=== PATIENT | male | born 1950 | race Two or more races ===

== ENCOUNTER 2019-01-24 21:56 | Emergency (ER) | payer OTHER ==
[~2019-01-24] VITALS: Ht 167.6 cm; Wt 72.6 kg
--- NOTE | 2019-01-24 22:05 | NUR ---
PT [id number] COMPLAINING OF GLF FOLLOWING HYPOGLYCEMIC EPISODE, PER EMS PT WAS GIVEN D10 IN THE FIELD FOR HYPOGLYCEMIA, AND THEN PT HAS SYNCOPAL EPISODE AND HIT HEAD ON THE GROUND. HEMATOMA NOTED ON FOREHEAD. PT AXO4. RESPIRATIONS EVEN AND UNLABORED. PT PUT ON THE PILOT PLANT OPERATOR AND PULSE OX. PENDING EVAL FROM ER .
--- NOTE | 2019-01-24 22:44 | NUR ---
BARBARA YAO AT BEDSIDE.
--- NOTE | 2019-01-24 22:56 | NUR ---
PT TAKEN TO CT VIA RLAUREN.
[2019-01-24] MEDS ORDERED: IV NS 0.9% 1,000 ML BAG IV ONE ×2 (23:00→23:30)
[2019-01-24 23:01] LABS: BASOPHILS # (AUTO) 0.1 /CMM (0.0-0.2); BASOPHILS % (AUTO) 1.3 % (0.0-2.0); EOSINOPHILS % (AUTO) 0.4 % (0.0-6.0); HEMATOCRIT 30 % (39-51); HEMOGLOBIN 10.2 g/dL (13.5-17.5); LYMPHOCYTES # (AUTO) 0.7 /CMM (0.8-4.8); MEAN CORPUSCULAR HGB CONC 33 g/dl (31.0-36.0); MEAN CORPUSCULAR VOLUME 91 fL (80-96); MONOCYTES # (AUTO) 0.8 /CMM (0.1-1.30); MONOCYTES % (AUTO) 12.4 % (2.0-12.0); NEUTROPHILS # (AUTO) 5.2 /CMM (1.8-8.9); NEUTROPHILS % (AUTO) 75.9 % (43.0-81.0); PLATELET COUNT (AUTO) 64 /CMM (150-450); RED BLOOD CELL COUNT(AUTO) 3.33 MIL/uL (4.5-6.0); WHITE BLOOD COUNT (AUTO) 6.8 K/uL (4.3-11.0)
--- NOTE | 2019-01-24 23:09 | NUR ---
PT RETURNED FROM CT.
--- NOTE | 2019-01-24 23:12 | NUR ---
EKG AT BEDSIDE.
--- NOTE | 2019-01-24 23:20 | NUR ---
PT AMBULATED TO BATHROOM W/ STEADY GAIT. NOT ABLE TO GIVE URINE SAMPLE. ER AWARE.
[2019-01-24 23:22] LABS: ALBUMIN 3.6 g/dL (3.4-5.0); BILIRUBIN,DIRECT 1.9 mg/dL (0.0-0.2); BILIRUBIN,TOTAL 3.8 mg/dL (0.2-1.0); CALCIUM, SERUM 8.3 mg/dL (8.5-10.1); CREATININE 1.5 mg/dL (0.6-1.3); TOTAL PROTEIN, SERUM 7.7 g/dL (6.4-8.2)
[2019-01-24 23:24] LABS: POTASSIUM 2.2 mmol/L (3.5-5.1)
[2019-01-24] MEDS ORDERED: POTASSIUM CL. PREMIX PERIPHER. 50 ML ONE (23:35)
[2019-01-24] MEDS: POTASSIUM CL. PREMIX PERIPHER. 50 ML IV SCH (23:40)
[2019-01-25 00:07] LABS: CHOLESTEROL 186 mg/dL (<200); HDL CHOLESTEROL 62 mg/dL (40-60); LDL 101 mg/dL (0-99); TRIGLYCERIDES 140 mg/dL (30-150)
[2019-01-25] MEDS ORDERED: LORAZEPAM INJ 2 MG/ML VIAL ONE (00:16)
[2019-01-25] MEDS ORDERED: LORAZEPAM INJ 2 MG/ML VIAL IV ONE (00:30)
--- NOTE | 2019-01-25 00:30 | NUR ---
[facility] CALLED. WILL BE CALLING BACK.
--- NOTE | 2019-01-25 00:31 | NUR ---
US AT BEDSIDE.
[2019-01-25 00:33] LABS: LYMPHOCYTES % (MANUAL) 11 % (16-48); MONOCYTES % (MANUAL) 10 % (0-11.0); NEUTROPHILS % (MANUAL) 79 (42-76)
[2019-01-25] MEDS ORDERED: POTASSIUM CL. PREMIX PERIPHER. 0 ML ONE (00:33)
[2019-01-25] MEDS: POTASSIUM CL. PREMIX PERIPHER. 50 ML IV SCH ×3 (00:40→02:30)
[2019-01-25 01:18] LABS: APPEARANCE,URINE Clear (CLEAR); BILIRUBIN,URINE Negative (NEGATIVE); BLOOD, URINE Moderate Ery/uL (NEGATIVE); COLOR,URINE Yellow (YELLOW); KETONES,URINE Negative (NEGATIVE); LEUKOCYTE ESTERASE ,URINE Negative (NEGATIVE); NITRITE, URINE Negative (NEGATIVE); PROTEIN,URINE 30 mg/dl (NEGATIVE); UGLUCOSE Negative (NEGATIVE)
[2019-01-25] MEDS ORDERED: Magnesium 1 GM/2 ML VIAL IV ONE (01:30)
[2019-01-25] MEDS ORDERED: Magnesium 1GM/D5W 100ML PREMIX 200 ML IV ONE (01:48)
--- NOTE | 2019-01-25 02:11 | NUR ---
ACCEPTED TO [facility] # FOR ER REPORT [phone]. ACCEPTING MD DR. BALDERAS. PICKUP AT 3AM.
[2019-01-25 02:18] LABS: BACTERIA,URINE None seen /HPF (None Seen); SQUAMOUS EPITHELIAL CELL,UR Few /HPF (None Seen); WBC,URINE 0-2 /HPF (0-3)
--- NOTE | 2019-01-25 02:34 | NUR ---
REPORT GIVEN TO GLENN SILVESTRE FOR TANIYA.
--- NOTE | 2019-01-25 03:00 | NUR ---
PER DR. SANCHES REQUEST, RUN MUCH POTASSIUM INTO THE PT UNTIL TRANPORT ARRIVES AND STOP THE REMAINING DOSE. PT DID NOT RECIEVE LAST 10 mEq OF POTASSIUM PER DR. MCCABE.
--- NOTE | 2019-01-25 03:13 | NUR ---
REPORT GIVEN TO LOR FOR [facility] TRANSPORT.
[2019-01-25 03:15] VITALS: BP 125/81
== END 2019-01-25 03:20 | disposition short-term general hospital (02) ==
LOC: ER 21:59
DX: S00.03XA Contusion of scalp, initial encounter (principal); S00.83XA Contusion of other part of head, initial encounter; E11.649 Type 2 diabetes mellitus with hypoglycemia without coma; E87.6 Hypokalemia; K85.20 Alcohol induced acute pancreatitis without necrosis or infection; F10.129 Alcohol abuse with intoxication, unspecified; R51 Headache; I10 Essential (primary) hypertension; Y90.9 Presence of alcohol in blood, level not specified; W18.09XA Striking against other object with subsequent fall, initial encounter; Y93.89 Activity, other specified; Y92.89 Other specified places as the place of occurrence of the external cause; Y99.8 Other external cause status
CPT/HCPCS: 36415; 70450; 71045; 74176; 76705; 80048; 80061; 80076; 81001; 82962 ×2; 83690; 83735; 85025; 93005; 96361; 96365; 96375; 99285; J2060; J3475; J3480; J7030 ×2; J7040; 81000-TC

== ENCOUNTER 2019-07-11 06:21 | Inpatient (IN) | payer OTHER ==
[2019-07-11] VITALS (36 sets, daily range): BP systolic 102–141; BP diastolic 57–98
[~2019-07-11] VITALS: Ht 167.6 cm; Wt 113.4 kg
--- NOTE | 2019-07-11 06:25 | NUR ---
TO BED 10 BIB EMS C/O ABDOMINAL PAIN WITH NAUSEA AND DIARRHES X3 DAYS, NOTED BLACK TARRY STOOL ON LOWER EXTREMITY. L KNEE PAIN S/P GLF. PT CHRIS KO. PT AAOX4 NO ACUTE DISTRESS NOTED, RESP EVEN AND UNLABORED. PLACE PT ON CARDIAC MONITORING, CONTINUOUS POX. ER MD AT BEDSIDE TO EVAL PT WITH ORDERS RECEIVED. WILL CARRY OUT ORDERS.
[2019-07-11] MEDS ORDERED: IV NS 0.9% 1,000 ML BAG IV ONE ×2 (06:30→08:30)
[2019-07-11] MEDS ORDERED: ONDANSETRON HCL/PF 4 MG/2 ML VIAL IVP ONE (06:30)
[2019-07-11] MEDS ORDERED: ONDANSETRON HCL/PF 4 MG/2 ML VIAL ONE (06:43)
--- NOTE | 2019-07-11 06:45 | NUR ---
IV INITIATED R AC 18G. LABS DRAWN FROM SITE AND SENT TO LAB. IV INTACT AND PATENT, PLACED ON SALINE LOCK
--- NOTE | 2019-07-11 07:02 | NUR ---
PT UNABLE TO PROVIDE URINE SAMPLE AT THIS TIME. ER AWARE
[2019-07-11 07:13] LABS: BASOPHILS # (AUTO) 0.1 /CMM (0.0-0.2); BASOPHILS % (AUTO) 0.4 % (0.0-2.0); EOSINOPHILS % (AUTO) 0.1 % (0.0-6.0); LYMPHOCYTES # (AUTO) 1.1 /CMM (0.8-4.8); LYMPHOCYTES % (AUTO) 8.4 % (20.0-44.0); MEAN CORPUSCULAR HGB CONC 29 g/dl (31.0-36.0); MEAN CORPUSCULAR VOLUME 83 fL (80-96); MONOCYTES # (AUTO) 1.3 /CMM (0.1-1.30); MONOCYTES % (AUTO) 10.1 % (2.0-12.0); NEUTROPHILS # (AUTO) 10.4 /CMM (1.8-8.9); PLATELET COUNT (AUTO) 379 /CMM (150-450); WHITE BLOOD COUNT (AUTO) 12.8 K/uL (4.3-11.0)
[2019-07-11 07:21] LABS: CALCIUM, SERUM 8.6 mg/dL (8.5-10.1); CARBON DIOXIDE 15 mmol/L (21-32); CHLORIDE 104 mmol/L (98-107); CREATININE 1.9 mg/dL (0.6-1.3); GLUCOSE 134 mg/dL (74-106); POTASSIUM 3.9 mmol/L (3.5-5.1); SODIUM SERUM 141 mmol/L (136-145); UREA NITROGEN, BLOOD 49 mg/dL (7-18)
[2019-07-11 07:22] LABS: HEMATOCRIT 16 % (39-51); HEMOGLOBIN 4.6 g/dL (13.5-17.5)
[2019-07-11 07:31] LABS: ALBUMIN 2.1 g/dL (3.4-5.0); ALKALINE PHOSPHATASE 130 U/L (46-116); ASPARTATE AMINOTRANSFERASE 31 U/L (15-37); BILIRUBIN,TOTAL 1.3 mg/dL (0.2-1.0); TOTAL PROTEIN, SERUM 6.2 g/dL (6.4-8.2)
--- NOTE | 2019-07-11 07:39 | NUR ---
ASSUMED CARE REPORT GIVEN BY TAYLOR SILVESTRE ,PATIENT AWAKE ALERT DENIES PAIN CALLED CT
[2019-07-11 08:11] LABS: ALANINE AMINOTRANSFERASE 16 U/L (12-78)
--- NOTE | 2019-07-11 08:20 | NUR ---
[facility], WAITING FOR MD CALL BACK.
--- NOTE | 2019-07-11 08:24 | NUR ---
RECIEVED CALL BACK FROM BILL YAO, DR. MOELLER.
[2019-07-11] MEDS ORDERED: VANCOMYCIN HCL 1.25 GM in IV D5W 260 ML IV ONE (08:30)
[2019-07-11] MEDS ORDERED: PIPERACILLIN /TAZOBACTAM 3.375 G in IV D5W 50 ML IV ONE (08:30)
--- NOTE | 2019-07-11 08:32 | NUR ---
CALLED SISTER SUPERIOR FOR ICU BED. WAITING FOR CALL BACK.
--- NOTE | 2019-07-11 08:53 | NUR ---
PATIENT AWAKE ALERT DENIES PAIN NOTED ABDOMEN DISTENDED REPOSITION PATIENT X1 SMALL BM DARK STOOL MD AWARE LAB RESULTS AWARE LOW H AND H ORDERED FOR BLOOD TRANSFUSION 3 UNITS CALLED BLOOD BANK STATED NOT READY .LYN GAS AND OIL SERVICER @ BEDSIDE FOR SECOND TYPE PER PROTOCOL ,PATIENT HAS 2 HEPLOCK OBTAINED NO EDEMA ,NO PAIN
--- NOTE | 2019-07-11 08:53 | NUR ---
RECIEVED CALL BACK FROM DR. IVONE MONTENEGRO MD TO
--- NOTE | 2019-07-11 08:55 | NUR ---
DONATO CHANG CALLED FOR CONSULT,SPOKE WITH DR SAM
[2019-07-11] MEDS ORDERED: VANCOMYCIN 1 GM in IV D5W 250ml IV ONE (09:00)
[2019-07-11 09:06] LABS: BAND % (MANUAL) 2 % (0.0-5.0); LYMPHOCYTES % (MANUAL) 5 % (16-48); MONOCYTES % (MANUAL) 8 % (0-11.0); NEUTROPHILS % (MANUAL) 85 (42-76)
[2019-07-11] MEDS ORDERED: GLIP10TA11 PO (09:16)
[2019-07-11] MEDS ORDERED: METO25TA20 PO (09:16)
[2019-07-11] MEDS ORDERED: FURO40TA5 PO (09:16)
[2019-07-11] MEDS ORDERED: POTA8TAB3 PO (09:16)
[2019-07-11] MEDS ORDERED: METF1000 PO (09:16)
[2019-07-11] MEDS ORDERED: ATOR40TA PO (09:16)
--- NOTE | 2019-07-11 09:30 | NUR ---
PATIENT AWAKE ALERT AGREES FOR PACK RED BLOOD CELL TRASFUSION SIGNED CONSENT PREPAROLE COUNSELING AIDE @ BEDSIDE ANTONIO Fields CNA
--- NOTE | 2019-07-11 09:45 | NUR ---
STARTED BLOOD TRANSFUSION WITNESS BY GENER \VITALS TAKEN AND FILED
--- NOTE | 2019-07-11 10:03 | NUR ---
ASSIGNED TO ICU 260
--- NOTE | 2019-07-11 10:05 | NUR ---
CALLED LAB SPOKE TO ANTONELLA REGARDING #2 LACTATE DRAW .
--- NOTE | 2019-07-11 10:20 | NUR ---
PATIENT TRASFER TO ICU NOTED BLOOD TRANSFUSION INFUSING WELL TO HIS LAC NO BLOOD REACTION AFTRE THE 15 MINUTES STARTED VITALS TAKEN AND FILED REPORT GIVEN TO Casper SILVESTRE
[2019-07-11] MEDS ORDERED: ZOLPIDEM TARTRATE 5 MG TABLET PO PRN (11:00)
[2019-07-11] MEDS ORDERED: HYDROCODONE/APAP 5/325MG 1 EACH TABLET PO PRN (11:00)
[2019-07-11] MEDS ORDERED: ONDANSETRON HCL/PF 4 MG/2 ML VIAL IVP PRN (11:00)
[2019-07-11] MEDS ORDERED: Z GUARD REMEDY 2 OZ OINT TP PRN (11:00)
[2019-07-11] MEDS ORDERED: ACETAMINOPHEN 325 MG TABLET PO PRN (11:00)
--- NOTE | 2019-07-11 11:00 | NUR ---
RN INITIAL NOTES RECEIVED PT FROM ER VIA [facility] WITH C/O ABDOMINAL PAIN AND BLACK TARRY STOOL. PT A/OX3. ON 02 VIA MI AT 2LPM. PT PLACED COMFORTABLY TO BED. CONNECTED TO MONITOR. IV LINES IN PLACE. 1 UNIT OF PRBC TRANSFUSING. NO REACTION NOTED. PT SINUS TACH IN THE MONITOR. BODY ASSESSMENT DONE, ABDOMEN DISTENDED. PICTURES TAKEN AND PLACED IN THE CHART. DR WISEMAN NOTIFIED OF ADMISSION. AWAITING FOR ADMISSION ORDERS. PT FOR PICC LINE INSERTION. WILL CONTINUE TO MONITOR
--- NOTE | 2019-07-11 14:00 | NUR ---
RN NOTE: BEDSIDE REPORT WAS RECEIVED FROM NIRMALA MAIN FOR CONTINUITY OF CARE. PATIENT WAS RECEIVING BLOOD TRANSFUSION PER MD ORDER AND NO BLOOD TRANSFUSION REACTION WAS NOTED.
--- NOTE | 2019-07-11 14:12 | NUR ---
RN NOTE: CALLED AND SPOKE WITH TOMASA TO PAGE DR. WISEMAN VIA [employer] EXCHANGE REGARDING THE PATIENT'S REQUEST FOR A COUGH SYRUP. AWAITING FOR MD'S RESPONSE.
--- NOTE | 2019-07-11 14:15 | NUR ---
RN NOTE: RECEIVED A TELEPHONE ORDER FROM DR. WISEMAN FOR A ROBITUSSIN 5ML PO Q6HR PRN. ORDER NOTED AND CARRIED OUT. PATIENT MADE AWARE.
[2019-07-11] MEDS ORDERED: GUAIFENESIN/D-METHORPHAN HB 5 ML UDC PO PRN (14:30)
[2019-07-11] MEDS: IV NS 0.9% 1,000 ML IV PRN (15:02)
[2019-07-11] MEDS ORDERED: METFORMIN 500 MG TABLET PO SCH (17:00)
[2019-07-11] MEDS: glipiZIDE 10 MG TABLET PO SCH (17:00)
[2019-07-11] MEDS: POTASSIUM CHLORIDE 10 MEQ TABLET.SA PO SCH (17:00)
[2019-07-11] MEDS: METOPROLOL TARTRATE 25 MG TABLET PO SCH (17:00)
--- NOTE | 2019-07-11 17:25 | NUR ---
RN NOTE: CALLED AND SPOKE WITH DR. WISEMAN ABOUT THE PATIENT'S EPISODE OF DESATURATION AND WAS VERBALIZING THAT HE CAN NOT BREATH. PATIENT WAS NOTED HYPERVENTILATING AND SPO2 WAS DROPPED TO 85% WITH O2 2L/MIN VIA NC. MD WITH ORDERS FOR BIPAP, LASIX 20MG IVP X1 AND H/H STAT. WILL HOLD FOR THE 3RD UNIT OF PRBC UNTIL RESULTS FOR H/H WAS RESULTED. PATIENT MADE AWARE.
[2019-07-11] MEDS: PANTOPRAZOLE 40 MG VIAL IV SCH (17:26)
[2019-07-11] MEDS ORDERED: FUROSEMIDE 20 MG/2 ML VIAL IV ONE ×2 (17:30→22:00)
[2019-07-11 17:45] LABS: HEMOGLOBIN 6.3 g/dL (13.5-17.5)
--- NOTE | 2019-07-11 17:45 | NUR ---
RN NOTE: RECEIVED A CRITICAL H/H VALUE 6.3. PAGED DR. WISEMAN VIA [employer] EXCHANGE AND SPOKE WITH TOMASA. AWAITING FOR 'S RESPONSE.
--- NOTE | 2019-07-11 17:55 | NUR ---
RT PATIENT WAS PLACED ON BIPAP FOR SOB WITH NOTED DISTRESS AND DESATURATION. ALARMS CHECKED + AUDIBLE. Addendum: 07/11/19 at 1756 by SY FERGUSON RT Amended: Links added.
--- NOTE | 2019-07-11 18:11 | NUR ---
RN NOTE: DR. WISEMAN CALLED BACK AND GAVE AN ORDER TO GIVE THE 3RD BAG OF PRBC AND GIVE LASIX AFTER THE LAST INFUSION. AND 1 HOUR POST TRANSFUSION, MD WANTED TO RECHECK THE H/H AGAIN. WILL ENDORSE THIS MISCELLANEOUS ORDER TO PM SHIFT NURSE.
--- NOTE | 2019-07-11 19:43 | NUR ---
NETWORK LEAD. INITIAL ASSESSMENT. RECEIVED THE PT REST ON THE BED, AWAKE, ALERT, WOLOF SPEAKING. 3RD UNIT PRBC RUNNING. HOB ELEVATED. BIPAP ON SETTINGS 20/5. RATE IS 14, FIO2 80%SAT 98%. NO ACUTE DISTRESS NOTED. GREASE CUP FILLER SHOWING S TACH. IV RT UPPER ARM PICC LINE IVF NS 75 ML/H. AT THIS TIME BLOOD RUNNING. NS 5 ML/H. UNTIL FINISH THE BLOOD TRANSFUSION FINISH..PT IS PALE . GIANFRANCO LOWE EXTREMITY SWOLLEN 4+ WILL CONTINUE TO MONITOR VITALS.
--- NOTE | 2019-07-11 19:45 | NUR ---
RN NOTE: BEDSIDE REPORT WAS GIVEN TO PM SHIFT NURSE FOR CONTINUITY OF CARE. PATIENT REMAINED TO BE ON BIPAP AND WAS SATURATING 100% AND WAS TOLERATING IT. SEVERAL ATTEMPTS TO REMOVE THE BIPAP WAS DONE BY THE PATIENT, BUT A DANISH SPEAKING STAFF WAS ASKED TO TRANSLATE TO THE PATIENT THAT HE NEEDED TO KEEP THE BIPAP ON HIM EVEN THOUGH HE FELT BETTER NOW. PATIENT UNDERSTOOD. WILL CONTINUE TO MONITOR.
--- NOTE | 2019-07-11 21:45 | NUR ---
agricultural purchasing agent. blood finished . during transfusion no complication noted
[2019-07-11] MEDS: ATORVASTATIN 40 MG TABLET PO SCH (21:57)
[2019-07-11 23:09] LABS: HEMOGLOBIN 7.2 g/dL (13.5-17.5)
--- NOTE | 2019-07-11 23:55 | NUR ---
SPECIAL NEEDS TUTOR. PT PULLING OUT OF BIPAP. , . EDUCATE THE PT FOR BIPAP NEEDS, NOT WORK OUT. CALLED PROPULSION SYSTEMS ENGINEER MD . FOR SOFT WRIST RESTRAINT ORDER RECEIVED.
[2019-07-12] VITALS (43 sets, daily range): BP systolic 90–142; BP diastolic 55–90
[2019-07-12] MEDS: IV NS 0.9% 1,000 ML IV PRN ×2 (00:21→14:03)
[2019-07-12 04:34] LABS: CALCIUM, SERUM 7.9 mg/dL (8.5-10.1); MAGNESIUM 1.6 mg/dL (1.8-2.4); PHOSPHORUS 3.2 mg/dL (2.5-4.9); POTASSIUM 3.9 mmol/L (3.5-5.1)
[2019-07-12 05:01] LABS: BASOPHILS % (AUTO) 0.1 % (0.0-2.0); EOSINOPHILS % (AUTO) 0.1 % (0.0-6.0); HEMATOCRIT 22 % (39-51); HEMOGLOBIN 7.1 g/dL (13.5-17.5); LYMPHOCYTES # (AUTO) 1.6 /CMM (0.8-4.8); LYMPHOCYTES % (AUTO) 8.1 % (20.0-44.0); MEAN CORPUSCULAR HGB CONC 32 g/dl (31.0-36.0); MEAN CORPUSCULAR VOLUME 84 fL (80-96); MONOCYTES # (AUTO) 1.7 /CMM (0.1-1.30); MONOCYTES % (AUTO) 8.5 % (2.0-12.0); NEUTROPHILS # (AUTO) 16.1 /CMM (1.8-8.9); NEUTROPHILS % (AUTO) 83.2 % (43.0-81.0); PLATELET COUNT (AUTO) 200 /CMM (150-450); RED BLOOD CELL COUNT(AUTO) 2.66 MIL/uL (4.5-6.0); WHITE BLOOD COUNT (AUTO) 19.4 K/uL (4.3-11.0)
--- NOTE | 2019-07-12 05:09 | NUR ---
INTERIOR BLOCK WIRER. ABDOMEN DISTENDED. BLADDER SCAN DONE. UNABLE TO FIND URINE. WILL CONTINUE TO MONITOR VITALS
[2019-07-12] MEDS ORDERED: MEROPENEM 500 MG VIAL IV ONE (05:36)
[2019-07-12] MEDS: MEROPENEM 500 MG in IV NS 0.9% 50 ML IV SCH ×2 (05:39→17:21)
--- NOTE | 2019-07-12 05:44 | NUR ---
PT RECEIVED ON BIPAP ON NOTED SETTINGS. PT IS AWAKE, KEEPS PULLING MASK OFF. EXPLAINED WHY HE IS ON BIPAP. PT CONTINUES TO PULL MASK OFF THE WHOLE NIGHT RN AWARE. TITRATED FIO2. MEPILEX IN PLACE. BIPAP ALARMS SET AND AUDIBLE. AMBU BAG AT BEDSIDE. CONTINUE PT ON BIPAP. Addendum: 07/12/19 at 0548 by SHANT HONG RT Amended: Links added.
--- NOTE | 2019-07-12 07:45 | NUR ---
ICU/RN INITIAL NOTES,AM RECEIVED BEDSIDE REPORT FROM NIGHT NURSE. PT ON BIPAP WITH SETTINGS ORDERED BY MD, NO DISTRESS, TOLERATING WELL. PT ALERT, FOLLOWS COMMANDS. SINUS ON TELE. PICC LINE AND PIV PATENT AND INTACT, NO S/S OF INFECTION OF INFILTRATION NOTED, IVF INFUSING ORDERED. PT ON DIAPER, UNABLE TO INSERT HERNANDEZ PER NIGHT RN. ALL NEEDS WILL BE ATTENDED TO, SAFETY MEASURES TAKEN, BED IN LOW POSITION, SIDE RAILS UP, CALL LIGHT WITHIN REACH. WILL CONTINUE CARE.
--- NOTE | 2019-07-12 08:00 | NUR ---
ICU/RN: PT TAKEN OFF BIPAP. PLACED ON 5LITERS NASAL CANULA, NO DISTRESS, TOLERATING WELL. WILL CONTINUE TO MONITOR. ABG PENDING. TAKEN OF BILATERAL WRIST RESTRAINTS, WILL CLOSELY MONITOR
--- NOTE | 2019-07-12 08:00 | NUR ---
RT PATIENT REMOVED FROM BIPAP AND PLACED ON 5L N/C ANTONIO WELL. NO SOB NOTED.
[2019-07-12] MEDS ORDERED: FEE PK DOSING 1 MIN EA MC ONE (08:09)
[2019-07-12] MEDS: PANTOPRAZOLE 40 MG VIAL IV SCH ×2 (08:47→17:22)
[2019-07-12] MEDS: FUROSEMIDE 40 MG TABLET PO SCH (08:49)
[2019-07-12] MEDS: POTASSIUM CHLORIDE 10 MEQ TABLET.SA PO SCH ×2 (08:49→17:22)
[2019-07-12] MEDS: glipiZIDE 10 MG TABLET PO SCH ×2 (08:49→17:22)
[2019-07-12] MEDS: METOPROLOL TARTRATE 25 MG TABLET PO SCH ×2 (09:00→17:22)
[2019-07-12 09:18] LABS: ABG BASE EXCESS -3.4 mmol/L; ABG OXYGEN SATURATION 95.6 % (92.0-98.5); ABG PCO2 30.7 mmHg (35.0-45.0); ABG PH 7.438 (7.350-7.450); ABG PO2 87.1 mmHg (75.0-100.0); AaDO2 162.8 mmHg; COHb 0.8 % (0.5-1.5); O2Hb 93.9 % (94.0-97.0); SITE, ABG Right Radial; VENT MODE, BG 5L N/C
[2019-07-12] MEDS ORDERED: Magnesium 1GM/D5W 100ML PREMIX 100 ML IV SCH (09:30)
[2019-07-12] MEDS ORDERED: VANCOMYCIN 1.5 GM in IV D5W 500 ML IV SCH (10:00)
--- NOTE | 2019-07-12 12:25 | NUR ---
WOUND CARE CONSULT: LIMITED ASSESSMENT DUE TO PT EATING LUNCH AT THIS TIME. PT PRESENTS WITH CALLUSES TO RT FOOT AND INTACT DEEP TISSUE INJURY TO RT HEEL, PRESENT ON ADMISSION. RECOMMENDATIONS MADE FOR SKIN PROTECTION. DISCUSSED WITH NURSING STAFF. WILL SEE PRN. YAO IN AGREEMENT WITH PLAN OF CARE. CURRENT GENE SCORE IS 15. Addendum: 07/12/19 at 1227 by LIANA MARTINEZ WNDNU Amended: Links added.
[2019-07-12 12:58] LABS: HEMOGLOBIN 6.4 g/dL (13.5-17.5)
[2019-07-12 15:24] LABS: ABG BASE EXCESS -5.4 mmol/L; ABG OXYGEN SATURATION 94.1 % (92.0-98.5); ABG PCO2 31.7 mmHg (35.0-45.0); ABG PH 7.392 (7.350-7.450); ABG PO2 75.1 mmHg (75.0-100.0); AaDO2 209.7 mmHg; COHb 1.3 % (0.5-1.5); MetHb 0.2 % (0.0-1.5); O2Hb 92.7 % (94.0-97.0); SITE, ABG Left Radial; VENT MODE, BG Nasal Cannula
--- NOTE | 2019-07-12 18:00 | NUR ---
ICU/RN: GI AT BEDSIDE, PT ASSESSED. ORDERS FOR EGD AND US GUIDED PARACENTESIS PLACED. CONSENT IN CHART. CALLED SON AND INFORMED HIM OF PROCEDURES. PT ALERT, AWAKE, ABLE TO CONSENT FOR HIMSELF.
--- NOTE | 2019-07-12 18:10 | NUR ---
ICU/RN: BLOOD TRANSFUSION STARTED, TOLERATING WELL, NO DISTRESS, NO S/S OF ADVERSE REACTIONS NOTED. WILL CONTINUE TO MONITOR.
--- NOTE | 2019-07-12 19:20 | NUR ---
ICU/RN: BEDSIDE REPORT ENDORSED TO NIGHT NURSE. PT ALERT, AWAKE, FOLLOW COMMANDS. ON NASAL CANULA, 5LITERS. SINUS ON TELE. ALL NEEDS ATTENDED TO. BLOOD TRANSFUSION ONGOING, TOLERATING WELL. SAFETY MEASURES TAKEN, BED IN LOW POSITION, SIDE RAILS UP, CALL LIGHT WITHIN REACH.
--- NOTE | 2019-07-12 19:30 | NUR ---
ICU NOTES RECEIVED PT AWAKE,ALERT OX4.1UNIT PRBC INFUSING.O2 AT 5LN/N WITH SATURATION OF 100% C/O SHORTNESS OF BREATH,RT AT BEDSIDE,WILL MONITOR.MONITOR SHOWS NSR RATE OF 85/MIN.INFORMED PT. RE-NPO AFTER M/N.RECEPTIVE AND UNDERSTAND.
--- NOTE | 2019-07-12 20:32 | NUR ---
ICU NOTES BLOOD INFUSED,NO TRANSFUSION REACTION NOTED.
[2019-07-12] MEDS: ATORVASTATIN 40 MG TABLET PO SCH (21:36)
--- NOTE | 2019-07-12 22:00 | NUR ---
ICU NOTES DIAPER CHECKED FOR URINE AND BOWEL MOVEMENT,DIAPER DRY.
--- NOTE | 2019-07-12 22:30 | NUR ---
ICU NOTES GIVEN 1 CUP JELL-O AND 2 [place] CRACKERS PER PT'S REQUEST.PT REMINDED OF NPO AFTER M/N.
--- NOTE | 2019-07-12 23:45 | NUR ---
ICU NOTES INCONTINENT OF MODERATE URINE MIXED WITH MODERATE BLACK STOOL.COMPLETE BED BATH GIVEN.DENIES PAIN OR DISCOMFORT.SCROTUM AND PENIS SWOLLEN SUSPENDED W/.2PILLOW CASES.
[2019-07-13] VITALS (29 sets, daily range): BP systolic 87–125; BP diastolic 41–79
--- NOTE | 2019-07-13 03:00 | NUR ---
ICU NOTES INCONTINENT OF BLACK STOOL SMALL AMT. MIXED W/ URINE,CLEANSE
[2019-07-13 04:17] LABS: BASOPHILS % (AUTO) 0.2 % (0.0-2.0); EOSINOPHILS % (AUTO) 1.2 % (0.0-6.0); HEMATOCRIT 24 % (39-51); HEMOGLOBIN 7.7 g/dL (13.5-17.5); LYMPHOCYTES # (AUTO) 2.3 /CMM (0.8-4.8); LYMPHOCYTES % (AUTO) 13.1 % (20.0-44.0); MEAN CORPUSCULAR HGB CONC 32 g/dl (31.0-36.0); MEAN CORPUSCULAR VOLUME 86 fL (80-96); MONOCYTES # (AUTO) 1.6 /CMM (0.1-1.30); MONOCYTES % (AUTO) 9.3 % (2.0-12.0); NEUTROPHILS # (AUTO) 13.6 /CMM (1.8-8.9); NEUTROPHILS % (AUTO) 76.2 % (43.0-81.0); PLATELET COUNT (AUTO) 231 /CMM (150-450); RED BLOOD CELL COUNT(AUTO) 2.76 MIL/uL (4.5-6.0); WHITE BLOOD COUNT (AUTO) 17.8 K/uL (4.3-11.0)
[2019-07-13 04:36] LABS: CALCIUM, SERUM 7.9 mg/dL (8.5-10.1); MAGNESIUM 1.8 mg/dL (1.8-2.4); POTASSIUM 3.3 mmol/L (3.5-5.1)
[2019-07-13] MEDS ORDERED: DEXTROSE 50%-WATER 50 ML DISP.SYRIN ONE ×2 (04:52→11:50)
[2019-07-13] MEDS: MEROPENEM 500 MG in IV NS 0.9% 50 ML IV SCH ×2 (06:16→17:03)
[2019-07-13] MEDS ORDERED: DEXTROSE 50%-WATER 50 ML DISP.SYRIN IVP ONE ×2 (07:00→09:30)
[2019-07-13] MEDS ORDERED: IV D5/ 0.9% NACL 1,000 ML IV PRN (07:00)
[2019-07-13] MEDS ORDERED: IV D5/ 0.9% NACL 1,000 ML IV ONE (07:00)
[2019-07-13] MEDS ORDERED: IV D5/0.45 NACL 1,000 ML IV PRN (07:00)
--- NOTE | 2019-07-13 07:00 | NUR ---
ICU NOTES GIVEN 2 DOSES OF DEXTROSE 50% FOR BS OF 38MG/DL AND 61 MG/DL.IV CHANGED TO D51/2 AT 60 L/HR.
--- NOTE | 2019-07-13 07:15 | NUR ---
ICU/NOTES REPORT AND CARE OF PT. GIVEN TO COLIN SILVESTRE.
[2019-07-13] MEDS ORDERED: PROPOFOL 100 ML IV PRN (07:30)
--- NOTE | 2019-07-13 07:40 | NUR ---
CLINIC OFFICE MANAGER OPENING NOTES RECEIVED REPORT FROM PM NURSE. PT AWAKE,ALERT OX4.EQUATORIAL GUINEAN SPEAKING.ON O2 AT 5L N/C WITH SATURATION OF 100% .ON TELE MONITOR NSR RATE OF 72 MIN.NPO FOR EGD.IV ON TEA INTACT AND PATENT WITH IVF ORDERED.BED IS LOW AND IN LOCKED POSITION.CALL LIGHT IN REACH.BED ALARM ON.WILL CONTINUE TO MONITOR.
--- NOTE | 2019-07-13 08:59 | NUR ---
WOUND CARE CONSULT: PT SEEN FOR FULL SKIN ASSESSMENT AND NOTED TO HAVE RASH TO GROIN/PERINEAL AREAS, PROFOUND EDEMA TO PENIS AND SCROTUM, GENERALIZED EDEMA WITH SOME PITTING (2+) AT THIGHS, RT HEEL INTACT DEEP TISSUE INJURY AND SOME DRY ABRASIONS TO FEET, PRESENT ON ADMISSION. RECOMMENDATIONS MADE FOR SKIN PROTECTION AND SKIN/WOUND CARE. DISCUSSED WITH NURSING STAFF. PT HAS BEEN INCONTINENT OF STOOL AND URINE. WILL SEE PRN. YAO IN AGREEMENT WITH PLAN OF CARE. CURRENT GENE SCORE IS 15. Addendum: 07/13/19 at 0902 by LIANA MARTINEZ WNDNU Amended: Links added.
[2019-07-13] MEDS: METOPROLOL TARTRATE 25 MG TABLET PO SCH ×2 (09:00→16:36)
[2019-07-13] MEDS: FUROSEMIDE 40 MG TABLET PO SCH (09:00)
[2019-07-13] MEDS: glipiZIDE 10 MG TABLET PO SCH ×2 (09:00→16:27)
[2019-07-13] MEDS: POTASSIUM CHLORIDE 10 MEQ TABLET.SA PO SCH ×2 (09:00→17:03)
[2019-07-13] MEDS: PANTOPRAZOLE 40 MG VIAL IV SCH ×2 (09:12→16:32)
[2019-07-13] MEDS ORDERED: DEXTROSE 50%-WATER 50 ML DISP.SYRIN IV PRN (11:00)
[2019-07-13] MEDS ORDERED: ALBUMIN 25% 25 GM in PREMIX 1 EA IV SCH (11:00)
--- NOTE | 2019-07-13 11:00 | NUR ---
PLUMBING WAREHOUSE HELPER NOTE PATIENT PICKED UP FOR EGD IN STABLE CONDITION.
[2019-07-13] MEDS ORDERED: ANESTHESIA TRAY IN PYXIS 1 EA TRAY MC ONE (11:10)
--- NOTE | 2019-07-13 11:30 | NUR ---
DATA ANALYTICS SPECIALIST NOTE SEEN BY ,UPDATED ABOUT PATIENT CONDITION.GOT NEW ORDERS.PARACENTESIS DONE .REMOVED 6400ML OF FLUID.STILL REMAINING FLUID. MADE AWARE.OK TO PULL 2 MORE BOTTLE AND TO GIVE ALBUMINX2.ACCU CHECK Q6H.MANAGER EXPORT MADE AWARE.REMOVED 8375ML OF FLUID AND SEND TO LAB WITH CYTOLOGY FORM.WILL CONTINUE TO MONITOR.
--- NOTE | 2019-07-13 12:15 | NUR ---
IMPREGNATOR NOTE PATIENT BACK FROM EGD IN STABLE CONDITION WITH NEW ORDERS.LOW BLOOD SUGAR.GAVE D50 IN OR.RECHECKED BS AND PLACED DIET ORDER.
[2019-07-13] MEDS: BLOOD SUGAR DIAGNOSTIC 1 EACH STRIP IN SCH ×2 (12:27→17:03)
--- NOTE | 2019-07-13 13:04 | NUR ---
GOLDBEATER OPENING NOTES RECEIVED REPORT FROM PM NURSE. PT AWAKE,ALERT OX4.TAJIK SPEAKING.ON O2 AT 5L N/C WITH SATURATION OF 100% .ON TELE MONITOR NSR RATE OF 72 MIN.NPO FOR EGD.IV ON TEA INTACT AND PATENT WITH IVF ORDERED.BED IS LOW AND IN LOCKED POSITION.CALL LIGHT IN REACH.BED ALARM ON.WILL CONTINUE TO MONITOR.
[2019-07-13] MEDS: POTASSIUM CL. PREMIX PERIPHER. 50 ML IV SCH ×4 (14:01→17:43)
[2019-07-13] MEDS: CLOTRIMAZOLE 1% 15 GM TUBE TP SCH ×2 (14:02→16:32)
[2019-07-13] MEDS ORDERED: LACTULOSE 10 G/15 ML UDC (PYXIS) PO PRN (15:00)
[2019-07-13] MEDS ORDERED: LACTOBACILLUS RHAMNOSUS GG 1 EACH CAP.SPRINK PO SCH (17:00)
[2019-07-13] MEDS ORDERED: SUCRALFATE 1 G/10 ML UDC GT SCH (17:30)
--- NOTE | 2019-07-13 18:00 | NUR ---
WOOD ROUTER HAND NOTE CALL MADE TO PER FOOD SAFETY SCIENTISTSEARCH MARKETING COORDINATOR TO D/C TO [place].OK TO CONTINUE ALL MEDS AND DISCHARGE TO ACUTE HOSPITAL.BS LOW 50 ,ORANGE JUICE GIVEN .PATIENT EATING AXOX4.RECHECKED BS 49.D50 GIVEN RECHECKED BS 115.WILL CONTINUE TO MONITOR.
--- NOTE | 2019-07-13 18:04 | NUR ---
SENIOR STATISTICAL PROGRAMMER NOTE METOPROLOL NOT ADMINISTERED BECAUSE OF BP <100.GLIPIZIDE HOLD BECAUSE OF LOW BS.
[2019-07-13 18:22] LABS: IRON, SERUM 12 ug/dl (50-175); TOTAL IRON BINDING CAPACITY 200 ug/dl (250-450)
[2019-07-13 18:36] LABS: FERRITIN 80 ng/mL (8-388)
--- NOTE | 2019-07-13 19:27 | NUR ---
DIRECTOR OF CONSUMER MARKETING CLOSING NOTES PT AWAKE,ALERT OX4.MAORI SPEAKING.ON O2 AT 4L N/C WITH SATURATION OF 100% .ON TELE MONITOR NSR RATE OF 76MIN.S/P EGD.IV ON TEA INTACT AND PATENT WITH IVF ORDERED.BED IS LOW AND IN LOCKED POSITION.CALL LIGHT IN REACH.BED ALARM ON.AWAITING TRANSFER TO [facility].SPOKE TO [facility].PICK FROM HERE IS 1999.CALL MADE TO [facility].TOLD TO GIVE REPORT AFTER 193.REPORT GIVEN TO PM NURSE FOR TANIYA.
--- NOTE | 2019-07-13 19:45 | NUR ---
CREATIVE TECHNOLOGIST PT HAD LOOSE BM. PERICARE RENDERED.
--- NOTE | 2019-07-13 19:58 | NUR ---
ICT MANAGERS REPORT GIVEN TO DEBBIE @ [facility]; [facility] AMBULANCE AT BEDSIDE REPORT GIVEN THEM TO WELL.
--- NOTE | 2019-07-13 20:00 | NUR ---
SUPERVISOR PROCESS TESTING PT TRANSPORTED TO [facility]. PT DENIES SOB OR PAIN. PT NOTIFIED HIS FAMILY.
== END 2019-07-13 20:21 | disposition short-term general hospital (02) | DRG 380 ==
LOC: ER 06:24 → ICU 10:10
PROVIDERS: ADMIT Family Medicine; ATTEND Internal Medicine
PROC: B548ZZA Ultrasonography of Superior Vena Cava, Guidance (ICD-10-PCS; principal; 2019-07-11)
PROC: 02HV33Z Insertion of Infusion Device into Superior Vena Cava, Percutaneous Approach (ICD-10-PCS; principal; 2019-07-11)
PROC: 30233N1 Transfusion of Nonautologous Red Blood Cells into Peripheral Vein, Percutaneous Approach (ICD-10-PCS; principal; 2019-07-11)
PROC: 0W9G3ZZ Drainage of Peritoneal Cavity, Percutaneous Approach (ICD-10-PCS; 2019-07-13)
PROC: 0DB48ZX Excision of Esophagogastric Junction, Via Natural or Artificial Opening Endoscopic, Diagnostic (ICD-10-PCS; 2019-07-13)
DX: K22.11 Ulcer of esophagus with bleeding (principal); N17.0 Acute kidney failure with tubular necrosis; E43 Unspecified severe protein-calorie malnutrition; J96.01 Acute respiratory failure with hypoxia; D62 Acute posthemorrhagic anemia; L03.116 Cellulitis of left lower limb; E87.2 Acidosis; J98.11 Atelectasis; K76.6 Portal hypertension; K72.90 Hepatic failure, unspecified without coma; D72.829 Elevated white blood cell count, unspecified; K70.31 Alcoholic cirrhosis of liver with ascites; E11.22 Type 2 diabetes mellitus with diabetic chronic kidney disease; E88.09 Other disorders of plasma-protein metabolism, not elsewhere classified; Z79.84 Long term (current) use of oral hypoglycemic drugs; K44.9 Diaphragmatic hernia without obstruction or gangrene; Z87.891 Personal history of nicotine dependence; K31.9 Disease of stomach and duodenum, unspecified; I12.9 Hypertensive chronic kidney disease with stage 1 through stage 4 chronic kidney disease, or unspecified chronic kidney disease; N18.9 Chronic kidney disease, unspecified
CPT/HCPCS: 36415; 36569; 36600; 70450-TC; 71045-TC; 73564-TC; 76942-TC; 80048-TC; 80061-TC; 80076-TC; 82140-TC; 82728-TC; 82962-TC; 83540-TC; 83605-TC; 83735-TC; 84100-TC; 84484-TC; 85025-TC; 85027-TC; 85730-TC; 86850-TC; 86921-TC; 87040-TC; 87070-TC; 87081-TC; 88112-TC; 88305-TC; 88312-TC; 88313-TC; 89051-TC; 94760-TC; A4216; C1751; C9113; G0378; J1940; J2185; J2405; J2543; J2704; J3370; J3475; J3480; J3490; J7030; J7040; J7042; J7050; J7060; P9016-BL; P9047